=== PATIENT | female | born 1990 ===

== ENCOUNTER 2017-10-21 23:32 | Emergency (ER) | payer OTHER ==
[2017-10-21 23:38] VITALS: BP 142/82; PULSE 77; TEMP 98.4; BMI 25.8
[2017-10-21 23:56] LABS: HCG,QUALITATIVE URINE NEGATIVE
[2017-10-21 23:58] LABS: URINE APPEARANCE CLEAR; URINE BILIRUBIN NEGATIVE (<2.0 mg/dL); URINE BLOOD NEGATIVE (NEGATIVE); URINE COLOR COLORLESS; URINE GLUCOSE (UA) NEGATIVE (NEGATIVE); URINE KETONE NEGATIVE (NEGATIVE); URINE LEUK ESTERASE NEGATIVE (NEGATIVE); URINE NITRITE NEGATIVE (NEGATIVE); URINE PROTEIN NEGATIVE (NEGATIVE); URINE UROBILINOGEN NEGATIVE mg/dL (0.2-1.0)
--- NOTE | 2017-10-22 00:11 | PDOC ---
History of Present Illness - General History Source: Patient Exam Limitations: No Limitations <Myriam Zelaya - Last Filed: 10/22/17 01:13> - History of Present Illness Initial Comments: 10/22/17 02:08 Patient is a 27 year old female with a significant past medical history of frequent UTIs who presents to the ED with complaints of dysuria that began earlier this week. Patient reports experiencing gradual episodes of dysuria while at home as well as associated symptoms of lower back pain, nausea, and general weakness. She reports experiencing clear vaginal discharge but states it no abnormal. Denies chest pain, Sob. Denies nausea, vomiting. Denies contact with sick individuals, out of state travelling. Denies hematuria, diarrhea, constipation. Denies any other symptoms. Allergies: Penicillin, Sulfamethoxazole, Trimethoprim. Social history: Current smoker (3 cigarettes per day). No smoking. No illicit drugs. Surgical history: None PMD: None <Jagjit Mathis - Last Filed: 10/22/17 02:08> - General Chief Complaint: Urinary Problem Stated Complaint: LOWER BACK PAIN, URINARY PROBLEM Past History - Past Medical History Asthma: Yes COPD: No - Reproductive History Is Patient Now?: No Therapeutic (s) & number: No - Suicide/Smoking/Psychosocial Hx Smoking History: Current every day smoker Number of Cigarettes Smoked Daily: 3 Information on smoking cessation initiated: No <Myriam Zelaya - Last Filed: 10/22/17 01:13> <Jagjit Mathis - Last Filed: 10/22/17 02:08> - Past Medical History Allergies/Adverse Reactions: Allergies Allergy/AdvReac Type Severity Reaction Status Date / Time Penicillins Allergy Verified 10/21/17 23:36 sulfamethoxazole Allergy Verified 10/21/17 23:36 [From Bactrim] trimethoprim [From Bactrim] Allergy Verified 10/21/17 23:36 Home Medications: Ambulatory Orders Levofloxacin [Levaquin] 500 mg PO DAILY #14 tablet 10/22/17 Review of Systems - Review of Systems Able to Perform ROS?: Yes Comments:: 10/22/17 02:08 GENERAL/CONSTITUTIONAL: No fever or chills. No weakness. HEAD, EYES, EARS, NOSE AND THROAT: No change in vision. No ear pain or discharge. No sore throat. GASTROINTESTINAL: No nausea, vomiting, diarrhea or constipation. GENITOURINARY: +Dysuria No frequency, or change in urination. CARDIOVASCULAR: No chest pain or shortness of breath. RESPIRATORY: No cough, wheezing, or hemoptysis. MUSCULOSKELETAL: +Lower back pain. No joint or muscle swelling or pain. No neck SKIN: No rash NEUROLOGIC: No headache, vertigo, loss of consciousness, or change in strength/ sensation. ENDOCRINE: No increased thirst. No abnormal weight change. HEMATOLOGIC/LYMPHATIC: No anemia, easy bleeding, or history of blood clots. ALLERGIC/IMMUNOLOGIC: No hives or skin allergy. <Jagjit Mathis - Last Filed: 10/22/17 02:08> *Physical Exam - Vital Signs Last Vital Signs Temp Pulse Resp BP Pulse Ox 98.4 F 77 18 142/82 100 10/21/17 23:36 10/21/17 23:36 10/21/17 23:36 10/21/17 23:36 10/21/17 23:36 <Myriam Zelaya - Last Filed: 10/22/17 01:13> - Vital Signs Last Vital Signs Temp Pulse Resp BP Pulse Ox 98.4 F 77 18 142/82 100 10/21/17 23:36 10/21/17 23:36 10/21/17 23:36 10/21/17 23:36 10/21/17 23:36 - Physical Exam Comments: 10/22/17 02:08 GENERAL: Awake, alert, and fully oriented, in no acute distress HEAD: No signs of trauma EYES: PERRLA, EOMI, sclera anicteric, conjunctiva clear ENT: Auricles normal inspection, nares patent, Moist mucosa NECK: Normal ROM, supple, no lymphadenopathy, JVD, or masses LUNGS: Breath sounds equal, clear to auscultation bilaterally. No wheezes, and no crackles HEART: Regular rate and rhythm, normal S1 and S2, no murmurs, rubs or gallops ABDOMEN: Soft, nontender, normoactive bowel sounds. No guarding, no rebound. No masses EXTREMITIES: Normal range of motion, no edema. No clubbing or cyanosis. No cords, erythema, or tenderness PELVIC: +Yellow discharge in vaginal vault. No CMT. No adnexal tenderness. No adnexal masses. NEUROLOGICAL: Normal speech SKIN: Warm, Dry, normal turgor, no rashes or lesions noted. <Jagjit Mathis - Last Filed: 10/22/17 02:08> ED Treatment Course - ADDITIONAL ORDERS Additional order review: Laboratory Results 10/21/17 23:14 Urine Color Colorless Urine Appearance Clear Urine pH 7.0 Ur Specific [place] 1.005 Urine Protein Negative Urine Glucose (UA) Negative Urine Ketones Negative Urine Blood Negative Urine Nitrite Negative Urine Bilirubin Negative Urine Urobilinogen Negative Ur Leukocyte Esterase Negative Urine HCG, Qual Negative <Myriam Zelaya - Last Filed: 10/22/17 01:13> - ADDITIONAL ORDERS Additional order review: Laboratory Results 10/21/17 23:14 Urine Color Colorless Urine Appearance Clear Urine pH 7.0 Ur Specific [place] 1.005 Urine Protein Negative Urine Glucose (UA) Negative Urine Ketones Negative Urine Blood Negative Urine Nitrite Negative Urine Bilirubin Negative Urine Urobilinogen Negative Ur Leukocyte Esterase Negative Urine HCG, Qual Negative - Medications Given in the ED: ED Medications Discontinued Medications Generic Name Dose Route Start Last Admin Trade Name Vitoq PRN Reason Stop Dose Admin Azithromycin 2 gm 10/22/17 01:02 10/22/17 01:33 Zithromax - PO 10/22/17 01:03 2 gm ONCE ONE Administration Levofloxacin 750 mg 10/22/17 01:06 10/22/17 01:33 Levaquin PO 10/22/17 01:07 750 mg ONCE ONE Administration <Jagjit Mathis - Last Filed: 10/22/17 02:08> Medical Decision Making - Medical Decision Making 10/22/17 00:10 27 yo F with no pmhx here wtih c/o dysuria, frequency, and flank pain. has h/o frequent utis, last in may. allergic to pcn and sulfa. no f/c on exam no cva tenderness, no abd tenderness. differential uti, pyelo, . plan ua ucg , treat pending ua. will also prophylactically treat for yeast infection wtih diflucan. 10/22/17 01:04 pt ua negative. pt states recently had unprotected intercourse concerned for STD. pelvic exam wtih yellowish discharge. no cmt, no adnexal tenderness, no palp massess. will treat prophylactically for ghonorrhea with levaquin 500 daily , azithromycin 2G po once. requesting hiv and syphillis screen. <Myriam Zelaya - Last Filed: 10/22/17 01:13> *DC/Admit/Observation/Transfer - Discharge Dispostion Admit: No <AleeMyriam burns - Last Filed: 10/22/17 01:13> - Attestations Scribe Attestion: 10/22/17 02:08 Documentation prepared by Jagjit Mathis, acting as medical records tech for Myriam Zelaya MD, /DO. <Jagjit Mathis - Last Filed: 10/22/17 02:08> Diagnosis at time of Disposition: Cervicitis, Urethritis - Discharge Dispostion Disposition: HOME Condition at time of disposition: Improved - Prescriptions Prescriptions: Levofloxacin [Levaquin] 500 mg PO DAILY #14 tablet - Referrals Referrals: David Ricci MD [Staff Physician] - - Patient Instructions Printed Discharge Instructions: DI for Acute Cervicitis Additional Instructions: take levaquin 500 mg daily x 14 days. you will be contacted if any of your tests are positive. call for any concerns. [phone] to ED for test results. you should also follow [facility] furnace . you may follow up [facility] a urologist for continued burning with urination . you can schedule an appointment with DR. Ricci, see referral information.
[2017-10-22] MEDS ORDERED: AZITHROMYCIN 1 GM PACKET PO ONE (01:02)
[2017-10-22] MEDS ORDERED: levoFLOXacin 750 MG TABLET PO ONE (01:06)
[2017-10-22] MEDS ORDERED: AZITHROMYCIN 250 MG TABLET ONE (01:27)
== END 2017-10-22 01:33 | disposition home or self-care (01) ==
LOC: JER 23:32
DX: N72 Inflammatory disease of cervix uteri (principal); N34.2 Other urethritis; Z11.3 Encounter for screening for infections with a predominantly sexual mode of transmission
CPT/HCPCS: 36415; 81003; 84703; 86593; 87086; 87389; 87491; 87591; 99281-25